=== PATIENT | male | born 1985 | race Caucasian/White ===

== ENCOUNTER 2020-07-05 11:17 | Emergency (ER) | payer BC ==
[~2020-07-05] VITALS: Ht 177.8 cm; Wt 129.6 kg
[2020-07-05 11:24] VITALS: BP 161/102
[2020-07-05] MEDS ORDERED: ALBU8HFA PO (11:48)
[2020-07-05] MEDS ORDERED: DEXA6TAB6 PO (11:48)
[2020-07-05] MEDS ORDERED: BENZ-16 PO (12:01)
== END 2020-07-05 12:18 | disposition home or self-care (01) ==
LOC: ER 11:18
DX: U07.1 COVID-19 (principal); Z79.899 Other long term (current) drug therapy
CPT/HCPCS: 36415; 71045; 87635; 99284

== ENCOUNTER 2020-07-08 11:53 | Inpatient (IN) | payer BC ==
[~2020-07-08] VITALS: Ht 177.8 cm; Wt 127.3 kg
[~2020-07-08 11:53] MED LIST: ALBU8HFA PO; BENZ-16 PO; DEXA6TAB6 PO
[2020-07-08] MEDS ORDERED: normal saline 1000ML IV soln IVB ONE (12:20)
[2020-07-08] MEDS ORDERED: methylPREDNISolone sod succ 125mg/2ml vial IV ONE (12:20)
[2020-07-08 13:16] LABS: ABG BASE EXCESS 0.6 mmol/L (-2.0-2.0); ABG HCO3 22.5 mmol/L (22.0-26.0); ABG OXYGEN SATURATION 80.9 % (94-97); ABG PCO2 (T) 30.5 mmHg (35.0-48.0); ABG PO2 (T) 44.3 mmHg (75.0-100.0); ALLEN'S TEST POSITIVE; FCOHb 0.9 % (0.0-3.9); FMetHb 0.2 % (0.0-1.5); PATIENT TEMPERATURE 37.7; TOTAL HEMOGLOBIN 16.5 G/dl (14.0-18.0)
[2020-07-08 13:17] LABS: BASOPHILS # (AUTO) 0.1 X10'3 (0-0.2); EOSINOPHILS % (AUTO) 0 % (0-6); HEMATOCRIT 47.7 % (42.0-52.0); HEMOGLOBIN 16.2 g/dl (14.0-17.9); LYMPHOCYTES # (AUTO) 0.5 X10'3 (1.1-4.8); LYMPHOCYTES % (AUTO) 4.1 % (21-51); MEAN CORPUSCULAR HEMOGLOBIN 29.4 PG (27.0-31.0); MEAN CORPUSCULAR HGB CONC 34.1 g/dL (33.0-36.5); MEAN CORPUSCULAR VOLUME 86.2 FL (78-98); MEAN PLATELET VOLUME 7.3 FL (7.4-10.4); MONOCYTES # (AUTO) 0.5 X10'3 (0-0.9); MONOCYTES % (AUTO) 4.3 % (2-12); NEUTROPHILS # (AUTO) 10.2 X10'3 (1.8-7.7); NEUTROPHILS % (AUTO) 90.6 % (42-75); PLATELET COUNT 237 X10'3 (140-440); RED BLOOD COUNT 5.53 X10'6 (4.70-6.10); RED CELL DISTRIBUTION WIDTH 13.1 % (11.5-14.5); WHITE BLOOD COUNT 11.3 X10'3 (4.5-11.0)
--- NOTE | 2020-07-08 13:24 | NUR ---
PT ON NON REBREATHER 15L SATS AT 96%
[2020-07-08 13:30] LABS: D-DIMER 0.66 MG/L FEU (0-0.50); PARTIAL THROMBOPLASTIN TIME 26 SECONDS (22-32)
[2020-07-08 13:44] LABS: ALANINE AMINOTRANSFERASE 115 U/L (12-78); ALBUMIN 3.4 G/DL (3.4-5.0); ALBUMIN/GLOBULIN RATIO 0.7 (1.1-1.5); ALKALINE PHOSPHATASE 59 IU/L (46-116); ANION GAP 11 (8-16); ASPARTATE AMINO TRANSFERASE 87 U/L (10-37); BILIRUBIN,TOTAL 0.9 MG/DL (0.1-1.0); BLOOD UREA NITROGEN 13 MG/DL (7-18); BUN/CREATININE RATIO 13.5 (5.4-32.0); CALCIUM 8.6 MG/DL (8.5-10.1); CHLORIDE 98 MMOL/L (99-107); CREATININE 0.96 MG/DL (0.60-1.10); GLUCOSE 128 MG/DL (70-104); POTASSIUM 3.8 MMOL/L (3.5-5.1); SODIUM 134 MMOL/L (135-145); TOTAL CARBON DIOXIDE 24.7 MMOL/L (24-32); TOTAL PROTEIN 8.3 G/DL (6.4-8.2); eGFR 89 ML/MIN
[2020-07-08] MEDS ORDERED: magnesium 2GM in 50ml NS 50 ML IV ONE (13:50)
[2020-07-08] MEDS ORDERED: azithromycin/NS 500mg/250ml 250 ML IV ONE (13:55)
--- NOTE | 2020-07-08 14:12 | NUR ---
IV compatibility checked via micromedex for Zithromax and magnesium.
[2020-07-08] MEDS ORDERED: ipratropium/albuterol 3ml nebule NEB ONE (14:25)
[2020-07-08] MEDS ORDERED: ALBUTEROL INHALER 1 PUFF/90 MCG INHALER IH ONE (15:15)
[2020-07-08] MEDS ORDERED: NO HOME MEDS (15:20)
[2020-07-08 15:27] LABS: C-REACTIVE PROTEIN 15.13 MG/DL (0.0-0.5)
[2020-07-08 17:10] LABS: LACTATE DEHYDROGENASE 444 U/L (85-227)
[2020-07-08] MEDS ORDERED: enoxaparin 100mg/ml syringe SUBCUT SCH (17:10)
[2020-07-08] MEDS ORDERED: ondansetron/PF 4mg/2ml inj IV PRN (17:10)
[2020-07-08] MEDS ORDERED: potassium Cl 20 mEq SR tablet PO PRN ×2 (17:10)
[2020-07-08] MEDS ORDERED: potassium CL 10mEq/100ml bag 100 ML IV PRN ×2 (17:10)
[2020-07-08] MEDS ORDERED: magnesium 2GM in 50ml NS 50 ML IV PRN (17:10)
[2020-07-08] MEDS ORDERED: magnesium 4gm in 100ml NS 100 ML IV PRN (17:10)
[2020-07-08] MEDS ORDERED: mag hydrox/Alum hydrox/simeth 30ml oral suspension PO PRN (17:10)
[2020-07-08] MEDS ORDERED: magnesium Cl slow-release 64mg tablet PO PRN (17:10)
[2020-07-08] MEDS ORDERED: acetaminophen 325mg tablet PO PRN (17:10)
[2020-07-08] MEDS ORDERED: REMDESIVIR 100MG inj. 200 MG in normal saline 100ml IV soln 100 ML IV ONE (17:20)
[2020-07-08] MEDS ORDERED: REMDESIVIR 100 MG IV ONE (18:18)
[2020-07-08] MEDS: methylPREDNISolone sod succ 125mg/2ml vial IV SCH (19:28)
[2020-07-08] MEDS: normal saline 1000ml 1,000 ML IV SCH (19:28)
[2020-07-08] MEDS: K and/or MAG REPLACEMENT MC SCH (19:59)
[2020-07-08] MEDS ORDERED: heparin, porcine 5000 units/ml vial SQ SCH (20:00)
[2020-07-08] MEDS: ALBUTEROL INHALER 1 PUFF/90 MCG INHALER IH PRN (22:31)
--- NOTE | 2020-07-08 23:10 | NUR ---
report received-- discussed hypoxia with primary rn. per rn, md carter has been notified and ordered personal inhaler for treatment. md aware of pt satting in low 90s, on a non rebreather. no additional orders. unable to give albuterol treatment due to covid status. md aware of pt's condition.
[2020-07-09 00:47] LABS: BASOPHILS % (AUTO) 0 % (0-1); EOSINOPHILS % (AUTO) 0 % (0-6); HEMOGLOBIN 14.9 g/dl (14.0-17.9); LYMPHOCYTES # (AUTO) 0.4 X10'3 (1.1-4.8); LYMPHOCYTES % (AUTO) 4.2 % (21-51); MEAN CORPUSCULAR HGB CONC 34.5 g/dL (33.0-36.5); MEAN CORPUSCULAR VOLUME 86.9 FL (78-98); MEAN PLATELET VOLUME 7.2 FL (7.4-10.4); MONOCYTES # (AUTO) 0.5 X10'3 (0-0.9); NEUTROPHILS # (AUTO) 8.4 X10'3 (1.8-7.7); NEUTROPHILS % (AUTO) 90.8 % (42-75); PLATELET COUNT 252 X10'3 (140-440); RED BLOOD COUNT 4.95 X10'6 (4.70-6.10); RED CELL DISTRIBUTION WIDTH 13.2 % (11.5-14.5); WHITE BLOOD COUNT 9.2 X10'3 (4.5-11.0)
--- NOTE | 2020-07-09 00:50 | NUR ---
I have received report from MARCIO Stinson (ED) and had the opportunity to ask questions.
[2020-07-09 01:04] LABS: ALBUMIN 2.8 G/DL (3.4-5.0); ANION GAP 10 (8-16); BLOOD UREA NITROGEN 14 MG/DL (7-18); BUN/CREATININE RATIO 16.3 (5.4-32.0); CALCIUM 8.4 MG/DL (8.5-10.1); CHLORIDE 103 MMOL/L (99-107); CREATININE 0.86 MG/DL (0.60-1.10); GLUCOSE 148 MG/DL (70-104); MAGNESIUM 2.4 MG/DL (1.5-2.4); POTASSIUM 3.7 MMOL/L (3.5-5.1); SODIUM 139 MMOL/L (135-145); TOTAL CARBON DIOXIDE 26.1 MMOL/L (24-32); eGFR > 90 ML/MIN
--- NOTE | 2020-07-09 01:35 | NUR ---
Pt arrived in the unit via gurney from ED. Pt is a/o x 4; pt belongings are with the pt. Oriented in the room. Place on tele monitor. MRSA swab and skin assessment done.
[2020-07-09 02:03] VITALS: BP 139/84
--- NOTE | 2020-07-09 06:04 | NUR ---
Problems reprioritized. Patient report given, questions answered & plan of care reviewed with MARCIO Rosario.
[2020-07-09 07:15] VITALS: BP 127/78
[2020-07-09] MEDS: K and/or MAG REPLACEMENT MC SCH ×2 (08:00→20:00)
[2020-07-09] MEDS: methylPREDNISolone sod succ 125mg/2ml vial IV SCH ×2 (08:16→20:20)
[2020-07-09] MEDS: enoxaparin 40mg/0.4ml syringe SUBCUT SCH (08:17)
--- NOTE | 2020-07-09 09:42 | NUR ---
Paged RT regarding putting patient on a tower with humidification for comfort.
[2020-07-09] MEDS: ALBUTEROL INHALER 1 PUFF/90 MCG INHALER IH PRN (10:18)
[2020-07-09 11:40] VITALS: BP 131/83
[2020-07-09 15:48] VITALS: BP 131/85
[2020-07-09] MEDS: REMDESIVIR 100MG inj. 100 MG in normal saline 100ml IV soln 100 ML IV SCH (16:31)
[2020-07-09] MEDS ORDERED: REMDESIVIR 100 MG IV ONE (16:36)
[2020-07-09 18:00] VITALS: BP 128/79
--- NOTE | 2020-07-09 18:16 | NUR ---
Problems reprioritized. Patient report given, questions answered & plan of care reviewed with MARCIO Jack. Patient stable at transfer of care.
--- NOTE | 2020-07-09 18:26 | NUR ---
Patient in room PCU 3008. I have received report from Marlene BUCKLEY and had the opportunity to ask questions and assume patient care.
--- NOTE | 2020-07-09 20:50 | NUR ---
Problems reprioritized. Patient report given, questions answered & plan of care reviewed with gael BUCKLEY from Ortho/Neuro.
--- NOTE | 2020-07-09 21:01 | NUR ---
Patient in room PCU 3008. I have received report from Guero BUCKLEY and had the opportunity to ask questions and assume patient care.
[2020-07-09 22:00] VITALS: BP 120/78
--- NOTE | 2020-07-09 22:09 | NUR ---
Reviewed Guero RN, charting and agree with it. Patient is A&Ox4 and in no apparent distress. Patient lying in bed comfortably and watching tv.
[2020-07-10] VITALS (12 sets, daily range): BP systolic 125–152; BP diastolic 64–87
--- NOTE | 2020-07-10 04:00 | NUR ---
Attempted to draw labs on patient 6 times and was unable to get any blood, Informed the charge nurse that I was unable to draw blood on him. Another nurse will try on day shift.
--- NOTE | 2020-07-10 06:22 | NUR ---
Problems reprioritized. Patient report given, questions answered & plan of care reviewed with Gillian BUCKLEY.
--- NOTE | 2020-07-10 06:30 | NUR ---
Patient in room ICU 2046. I have received report from JENNIFER BUCKLEY and had the opportunity to ask questions and assume patient care.
--- NOTE | 2020-07-10 06:48 | NUR ---
PT'S SATS KEEP DROPPING TO 88-87. ORDERED RP TX.
[2020-07-10] MEDS: ALBUTEROL INHALER 1 PUFF/90 MCG INHALER IH PRN ×2 (06:52→10:23)
[2020-07-10] MEDS: K and/or MAG REPLACEMENT MC SCH ×2 (08:00→20:00)
--- NOTE | 2020-07-10 08:26 | NUR ---
UNABLE TO HANG REMDESIVIR, PHARMACY FORGOT TO SEND IT. CALLED PHARMACY , THEY ARE GETTING IT READY.
[2020-07-10] MEDS ORDERED: REMDESIVIR 100 MG IV ONE (08:35)
[2020-07-10] MEDS: methylPREDNISolone sod succ 125mg/2ml vial IV SCH ×2 (08:39→19:21)
[2020-07-10] MEDS: enoxaparin 40mg/0.4ml syringe SUBCUT SCH (08:40)
[2020-07-10] MEDS: REMDESIVIR 100MG inj. 100 MG in normal saline 100ml IV soln 100 ML IV SCH (08:53)
--- NOTE | 2020-07-10 09:07 | NUR ---
PT HAD 6 ATTEMPTS LAST MIGHT TO DRAW BLOOD BY THE NURSE. I ATTEMPTED ONCE. CALLED LAB PER DR ASH.
[2020-07-10 09:49] LABS: BASOPHILS % (AUTO) 0.3 % (0-1); EOSINOPHILS % (AUTO) 0 % (0-6); HEMATOCRIT 43.9 % (42.0-52.0); HEMOGLOBIN 15.3 g/dl (14.0-17.9); LYMPHOCYTES # (AUTO) 0.8 X10'3 (1.1-4.8); LYMPHOCYTES % (AUTO) 7.1 % (21-51); MEAN CORPUSCULAR HEMOGLOBIN 30.1 PG (27.0-31.0); MEAN CORPUSCULAR HGB CONC 34.8 g/dL (33.0-36.5); MEAN CORPUSCULAR VOLUME 86.4 FL (78-98); MEAN PLATELET VOLUME 7.3 FL (7.4-10.4); MONOCYTES # (AUTO) 1.1 X10'3 (0-0.9); MONOCYTES % (AUTO) 10.6 % (2-12); NEUTROPHILS # (AUTO) 8.7 X10'3 (1.8-7.7); PLATELET COUNT 352 X10'3 (140-440); RED BLOOD COUNT 5.08 X10'6 (4.70-6.10); RED CELL DISTRIBUTION WIDTH 13.2 % (11.5-14.5); WHITE BLOOD COUNT 10.6 X10'3 (4.5-11.0)
[2020-07-10 09:56] LABS: D-DIMER 0.35 MG/L FEU (0-0.50)
[2020-07-10 09:58] LABS: HEMOGLOBIN A1C 5.8 % (4.5-6.2)
[2020-07-10 10:00] LABS: ALBUMIN 2.8 G/DL (3.4-5.0); ANION GAP 11 (8-16); BLOOD UREA NITROGEN 21 MG/DL (7-18); BUN/CREATININE RATIO 26.3 (5.4-32.0); C-REACTIVE PROTEIN 6.62 MG/DL (0.0-0.5); CALCIUM 8.9 MG/DL (8.5-10.1); CHLORIDE 103 MMOL/L (99-107); GLUCOSE 134 MG/DL (70-104); LACTATE DEHYDROGENASE 374 U/L (85-227); MAGNESIUM 2.5 MG/DL (1.5-2.4); POTASSIUM 3.8 MMOL/L (3.5-5.1); SODIUM 138 MMOL/L (135-145); eGFR > 90 ML/MIN
--- NOTE | 2020-07-10 10:30 | NUR ---
TRANSFERRED PT TO ICU
[2020-07-10 11:03] LABS: ALANINE AMINOTRANSFERASE 103 U/L (12-78); ALBUMIN/GLOBULIN RATIO 0.6 (1.1-1.5); ALKALINE PHOSPHATASE 46 IU/L (46-116); ASPARTATE AMINO TRANSFERASE 59 U/L (10-37); BILIRUBIN,DIRECT 0.2 MG/DL (0-0.3); BILIRUBIN,TOTAL 0.5 MG/DL (0.1-1.0); TOTAL PROTEIN 7.3 G/DL (6.4-8.2)
--- NOTE | 2020-07-10 12:19 | NUR ---
Malnutrition consult. Pt visualized from outside room, has no visible fat or muscle wasting. No malnutrition. Eating 25% average 4 meals, poor appetite likely r/t shortness of breath. Recommend supplement to meet needs in view of lower respiratory tract infection, hypoxemia, and covid-19 per MD progress notes. Recommend: 1. continue regular diet 2. ensure enlive TID 3. wt per rx Addendum: 07/10/20 at [address] Amended: Links added.
[2020-07-10] MEDS: normal saline 1000ml 1,000 ML IV SCH (17:02)
[2020-07-10] MEDS: lactose-reduced food (Ensure Enlive) - 237ml bottle PO SCH (18:00)
--- NOTE | 2020-07-10 18:25 | NUR ---
Patient in room ICU 2046. I have received report from Candido BUCKLEY and had the opportunity to ask questions and assume patient care.
[2020-07-10] MEDS ORDERED: dexamethasone 4mg/ml inj IV SCH (20:00)
[2020-07-11] VITALS (24 sets, daily range): BP systolic 113–149; BP diastolic 51–94
[2020-07-11] MEDS: ALBUTEROL INHALER 1 PUFF/90 MCG INHALER IH PRN ×2 (00:29→20:28)
--- NOTE | 2020-07-11 01:12 | NUR ---
Paged RT per O2 saturations staying between 85-89%. Pt has no c/o of significant SOB, provided PRN breathing tx, had pt clean nose, unable to improve saturations. Addendum: 07/11/20 at 0142 by Matthias Jett RN Tested with portable pulse oxygen readings accurate within a 1-2% error. Patient O2 staying around 88-90 at this time. Told patient to let me know when he feels symptomatic / SOB. Will continue to monitor.
--- NOTE | 2020-07-11 03:00 | NUR ---
delaying drawing labs, patient sleeping for first time this shift leading to increased oxygen saturations. Staying 92-94% will draw labs once patient wakes up, and will promote proper sleeping.
[2020-07-11 04:29] LABS: ALBUMIN 2.9 G/DL (3.4-5.0); ANION GAP 10 (8-16); BLOOD UREA NITROGEN 22 MG/DL (7-18); BUN/CREATININE RATIO 27.8 (5.4-32.0); C-REACTIVE PROTEIN 3.13 MG/DL (0.0-0.5); CALCIUM 9.1 MG/DL (8.5-10.1); CHLORIDE 104 MMOL/L (99-107); CREATININE 0.79 MG/DL (0.60-1.10); GLUCOSE 148 MG/DL (70-104); LACTATE DEHYDROGENASE 359 U/L (85-227); MAGNESIUM 2.5 MG/DL (1.5-2.4); POTASSIUM 4.2 MMOL/L (3.5-5.1); SODIUM 139 MMOL/L (135-145); TOTAL CARBON DIOXIDE 24.8 MMOL/L (24-32); eGFR > 90 ML/MIN
[2020-07-11 04:34] LABS: D-DIMER 0.31 MG/L FEU (0-0.50)
[2020-07-11 04:36] LABS: MEAN PLATELET VOLUME 7.3 FL (7.4-10.4); RED CELL DISTRIBUTION WIDTH 13.3 % (11.5-14.5)
[2020-07-11 04:38] LABS: BASOPHILS % (AUTO) 0 % (0-1); EOSINOPHILS % (AUTO) 0 % (0-6); HEMATOCRIT 45.5 % (42.0-52.0); HEMOGLOBIN 15.7 g/dl (14.0-17.9); LYMPHOCYTES # (AUTO) 0.7 X10'3 (1.1-4.8); LYMPHOCYTES % (AUTO) 6.6 % (21-51); MEAN CORPUSCULAR HGB CONC 34.4 g/dL (33.0-36.5); MEAN CORPUSCULAR VOLUME 87.1 FL (78-98); MONOCYTES # (AUTO) 1.2 X10'3 (0-0.9); MONOCYTES % (AUTO) 10.4 % (2-12); NEUTROPHILS # (AUTO) 9.2 X10'3 (1.8-7.7); PLATELET COUNT 400 X10'3 (140-440); RED BLOOD COUNT 5.23 X10'6 (4.70-6.10); WHITE BLOOD COUNT 11.1 X10'3 (4.5-11.0)
--- NOTE | 2020-07-11 06:05 | NUR ---
Problems reprioritized. Patient report given, questions answered & plan of care reviewed with Candido BUCKLEY.
--- NOTE | 2020-07-11 06:07 | NUR ---
Patient in room ICU 2046. I have received report from MARCIO Lan and had the opportunity to ask questions and assume patient care.
[2020-07-11] MEDS: K and/or MAG REPLACEMENT MC SCH ×2 (07:01→20:00)
[2020-07-11] MEDS: lactose-reduced food (Ensure Enlive) - 237ml bottle PO SCH ×3 (08:00→18:00)
[2020-07-11] MEDS ORDERED: REMDESIVIR 100 MG IV ONE (08:35)
[2020-07-11] MEDS: REMDESIVIR 100MG inj. 100 MG in normal saline 100ml IV soln 100 ML IV SCH (08:54)
[2020-07-11] MEDS: enoxaparin 40mg/0.4ml syringe SUBCUT SCH (08:55)
[2020-07-11] MEDS: methylPREDNISolone sod succ 125mg/2ml vial IV SCH ×2 (08:55→20:20)
--- NOTE | 2020-07-11 18:05 | NUR ---
Problems reprioritized. Patient report given, questions answered & plan of care reviewed with MARCIO Jack.
--- NOTE | 2020-07-11 18:10 | NUR ---
Patient in room ICU 2046. I have received report from Ad BUCKLEY and had the opportunity to ask questions and assume patient care.
--- NOTE | 2020-07-11 19:09 | NUR ---
Ensure Supplement ordered for the wrong date and time. Will give 07/11 evening supplement once it arrives.
--- NOTE | 2020-07-11 20:29 | NUR ---
albuterol was not scanning. administered d/t pt c/o SOB. Sats were low 80s. after administration, sats are back to low 90s. pt now has no complaint of SOB and no cough. will continue to monitor.
--- NOTE | 2020-07-11 22:23 | NUR ---
pt got up to commode and sats dropped to 80-82% with pt c/o SOB. increased O2 to 65%. sats up to 93%. decreased to 60% and now remaining at 88-90%. will continue titrate back down to 50% at desirable levels. Pt is comfortable and in no apparent distress. will continue to monitor. Addendum: 07/12/20 at 0206 by Guero Colon RN correction: increased O2 to 65L decreased to 60L O2 titrate back down to 50L O2
[2020-07-12] VITALS (25 sets, daily range): BP systolic 106–145; BP diastolic 64–92
[2020-07-12] MEDS: ALBUTEROL INHALER 1 PUFF/90 MCG INHALER IH PRN (04:01)
--- NOTE | 2020-07-12 04:03 | NUR ---
scanner not working for albuterol. pt sat to 79% with SOB per pt. sat back up to 90% on 60L O2. pt WOB decreased and is more comfortable. no apparent distress at this time. will continue to monitor.
[2020-07-12 04:53] LABS: BASOPHILS % (AUTO) 0.2 % (0-1); EOSINOPHILS % (AUTO) 0 % (0-6); HEMOGLOBIN 15.9 g/dl (14.0-17.9); LYMPHOCYTES # (AUTO) 0.7 X10'3 (1.1-4.8); LYMPHOCYTES % (AUTO) 6.5 % (21-51); MEAN CORPUSCULAR HEMOGLOBIN 29.2 PG (27.0-31.0); MEAN CORPUSCULAR HGB CONC 33.9 g/dL (33.0-36.5); MEAN CORPUSCULAR VOLUME 86.2 FL (78-98); MEAN PLATELET VOLUME 7.4 FL (7.4-10.4); MONOCYTES % (AUTO) 9.3 % (2-12); NEUTROPHILS # (AUTO) 9.4 X10'3 (1.8-7.7); PLATELET COUNT 409 X10'3 (140-440); RED BLOOD COUNT 5.45 X10'6 (4.70-6.10); WHITE BLOOD COUNT 11.2 X10'3 (4.5-11.0)
[2020-07-12 05:00] LABS: D-DIMER 0.91 MG/L FEU (0-0.50)
[2020-07-12 05:12] LABS: ALBUMIN 2.9 G/DL (3.4-5.0); ANION GAP 11 (8-16); BLOOD UREA NITROGEN 21 MG/DL (7-18); C-REACTIVE PROTEIN 1.37 MG/DL (0.0-0.5); CHLORIDE 104 MMOL/L (99-107); CREATININE 0.84 MG/DL (0.60-1.10); GLUCOSE 123 MG/DL (70-104); LACTATE DEHYDROGENASE 325 U/L (85-227); MAGNESIUM 2.4 MG/DL (1.5-2.4); POTASSIUM 4.3 MMOL/L (3.5-5.1); SODIUM 140 MMOL/L (135-145); TOTAL CARBON DIOXIDE 24.6 MMOL/L (24-32); eGFR > 90 ML/MIN
[2020-07-12] MEDS: normal saline 1000ml 1,000 ML IV SCH (05:13)
--- NOTE | 2020-07-12 06:30 | NUR ---
Received report from Guero BUCKLEY, [facility] care.
--- NOTE | 2020-07-12 06:39 | NUR ---
Problems reprioritized. Patient report given, questions answered & plan of care reviewed with Nkechi BUCKLEY.
[2020-07-12] MEDS: K and/or MAG REPLACEMENT MC SCH ×2 (07:07→20:00)
[2020-07-12] MEDS: methylPREDNISolone sod succ 125mg/2ml vial IV SCH ×2 (08:31→20:16)
[2020-07-12] MEDS: REMDESIVIR 100MG inj. 100 MG in normal saline 100ml IV soln 100 ML IV SCH (08:31)
[2020-07-12] MEDS: enoxaparin 40mg/0.4ml syringe SUBCUT SCH (08:31)
[2020-07-12] MEDS: lactose-reduced food (Ensure Enlive) - 237ml bottle PO SCH ×3 (08:34→18:53)
[2020-07-12] MEDS ORDERED: REMDESIVIR 100 MG IV ONE (08:35)
--- NOTE | 2020-07-12 09:24 | NUR ---
Patient tearful and c/o nose dry r/t pain of oxygen force. Noted IV saline bag was dry, RT notified and delivered. O2 saturation dropped to 83% when patient removed O2 tubing from discomfort. Educated patient to leave on and I'll get the bag devante. This nurse hung bag and also provided patient with lubricating jelly to moisturize nose. Current O2 is 90% on 65L. Breakfast at bedside and tolerating well.
--- NOTE | 2020-07-12 09:49 | NUR ---
Made Dr. Hoyos aware of increase on High Flow to 65 L from 60 L, current O2 saturation level is 87-91% with frequent fluctuation. Will cont. to monitor. Dr. Hoyos states to maintain goal of 88-90%, we don't want to do too much and risk intubating him. Also noted since add the new bag of High flow fluid bag patient states his nose pain has improved 100%, "it's 100% better."
--- NOTE | 2020-07-12 13:30 | NUR ---
Decreased high flow oxygen from 65 L to 55 L, patient is maintaining 88-92%. Will cont. to monitor and attempt to ween the Liters down as patient tolerates.
--- NOTE | 2020-07-12 14:45 | NUR ---
Initial: Pt admit DX COVID-19 PNA and hypoxia on 60L O2 per MD note. PO 75-100% avg regular diet PO pending w/ ensure enlive TIDWM though likely meeting needs pending scaled wt this admit. LBM 07/12. Will continue to monitor. Recommend: 1. continue regular diet 2. ensure enlive TID 3. bowel care per rx 4. wt per rx Addendum: 07/12/20 at [address] Amended: Links added.
--- NOTE | 2020-07-12 16:50 | NUR ---
Was able to turn Liters down quite a bit after consulting with RT. Advised to decrease to 40 L and 80% FIO2. Will cont. to monitor.
--- NOTE | 2020-07-12 18:10 | NUR ---
Gave report to Guero BUCKLEY, transferred care over.
--- NOTE | 2020-07-12 18:13 | NUR ---
Received orders for Melatonin 3 mg at HS for sleep aid.
--- NOTE | 2020-07-12 18:20 | NUR ---
Patient in room ICU 2046. I have received report from Nkechi BUCKLEY and had the opportunity to ask questions and assume patient care.
--- NOTE | 2020-07-12 19:09 | NUR ---
patient was increased to 50L of O2 from 40L and 80%FiO2 from 70%FiO2. Pt is currently sating at 87%-90%. will continue to monitor
--- NOTE | 2020-07-12 19:56 | NUR ---
pt sating at 93%... decreased patient's O2 back down to 40L and FiO2 back down to 70%. Pt currently sating at 90%.
[2020-07-12] MEDS: Melatonin 3mg tablet PO SCH (20:16)
[2020-07-13] VITALS (24 sets, daily range): BP systolic 103–130; BP diastolic 57–88
[2020-07-13 04:41] LABS: BASOPHILS % (AUTO) 0.2 % (0-1); EOSINOPHILS % (AUTO) 0 % (0-6); HEMATOCRIT 48.8 % (42.0-52.0); HEMOGLOBIN 16.7 g/dl (14.0-17.9); LYMPHOCYTES # (AUTO) 0.9 X10'3 (1.1-4.8); LYMPHOCYTES % (AUTO) 6.6 % (21-51); MEAN CORPUSCULAR HEMOGLOBIN 29.5 PG (27.0-31.0); MEAN CORPUSCULAR HGB CONC 34.2 g/dL (33.0-36.5); MEAN CORPUSCULAR VOLUME 86.1 FL (78-98); MEAN PLATELET VOLUME 7.3 FL (7.4-10.4); MONOCYTES % (AUTO) 7.5 % (2-12); NEUTROPHILS # (AUTO) 11.1 X10'3 (1.8-7.7); NEUTROPHILS % (AUTO) 85.7 % (42-75); PLATELET COUNT 418 X10'3 (140-440); RED BLOOD COUNT 5.67 X10'6 (4.70-6.10); RED CELL DISTRIBUTION WIDTH 13.1 % (11.5-14.5); WHITE BLOOD COUNT 12.9 X10'3 (4.5-11.0)
[2020-07-13 04:47] LABS: D-DIMER 0.34 MG/L FEU (0-0.50)
[2020-07-13 04:52] LABS: ALBUMIN 2.9 G/DL (3.4-5.0); ANION GAP 11 (8-16); BLOOD UREA NITROGEN 19 MG/DL (7-18); BUN/CREATININE RATIO 24.1 (5.4-32.0); C-REACTIVE PROTEIN 0.53 MG/DL (0.0-0.5); CALCIUM 8.5 MG/DL (8.5-10.1); CHLORIDE 101 MMOL/L (99-107); CREATININE 0.79 MG/DL (0.60-1.10); GLUCOSE 128 MG/DL (70-104); LACTATE DEHYDROGENASE 285 U/L (85-227); MAGNESIUM 2.2 MG/DL (1.5-2.4); POTASSIUM 4.4 MMOL/L (3.5-5.1); SODIUM 136 MMOL/L (135-145); TOTAL CARBON DIOXIDE 23.6 MMOL/L (24-32); eGFR > 90 ML/MIN
--- NOTE | 2020-07-13 06:10 | NUR ---
Received report from BILL BUCKLEY, [facility] care.
--- NOTE | 2020-07-13 06:10 | NUR ---
Problems reprioritized. Patient report given, questions answered & plan of care reviewed with Nkechi Cleaning.
[2020-07-13] MEDS: K and/or MAG REPLACEMENT MC SCH ×2 (06:29→19:59)
[2020-07-13] MEDS: methylPREDNISolone sod succ 125mg/2ml vial IV SCH (08:03)
[2020-07-13] MEDS: enoxaparin 40mg/0.4ml syringe SUBCUT SCH (08:03)
[2020-07-13] MEDS: lactose-reduced food (Ensure Enlive) - 237ml bottle PO SCH ×3 (08:03→18:00)
--- NOTE | 2020-07-13 08:30 | NUR ---
Encouraged patient to sit on side of bed for breakfast today since yesterday he sat in bed for all meals. Upon sitting on side of bed he began to cough continually x 5-7 minutes straight. Turned up FIO2 to 100% and L up to 70 from 40. In addition d/t his saturation levels not rising to goal I added 15 L NRB to assist in oxygenation. Was successful. Patient stopped coughing and removed the NRB after over 10 minutes of coughing. Currently sitting at bedside on 90% Fio2 and 60 L at 89%. Will cont. to monitor.
--- NOTE | 2020-07-13 10:41 | NUR ---
5F DUAL LUMEN MIDLINE PLACED TO RIGHT BASILIC VEIN X'S 1 ATTEMPT WITH SUCCESS USING ULTRASOUND GUIDANCE. TIP ENDS MIDAXILLARY, DRAWS BLOOD AND FLUSHES WITHOUT DIFFICULTY. Bozena GARCIA PICC RN
[2020-07-13] MEDS: ALBUTEROL INHALER 1 PUFF/90 MCG INHALER IH PRN ×2 (12:24→16:00)
[2020-07-13] MEDS: benzonatate 100mg capsule PO PRN ×2 (12:28→20:41)
[2020-07-13] MEDS: normal saline 1000ml 1,000 ML IV SCH (16:00)
--- NOTE | 2020-07-13 18:17 | NUR ---
Gave report to Guero BUCKLEY, transferred care.
--- NOTE | 2020-07-13 18:23 | NUR ---
Patient in room ICU 2046. I have received report from Nkechi BUCKLEY and had the opportunity to ask questions and assume patient care.
--- NOTE | 2020-07-13 19:12 | NUR ---
pt is awake and got up to the commode and had coughing spells. pt dropped to 80% Saturations. increased O2 to 70L and FiO2 to 100% with NRB @ 10L. pt is satting at 87-89%. Pt had the NRB on for aprox. 5 minutes. once pt begins to have higher sats and is tolerating well, will begin to decrease O2 and FiO2. pt is stable and is no longer SOB. pt appears to be comfortable for the moment. Will continue to monitor.
--- NOTE | 2020-07-13 19:44 | NUR ---
pt got back into bed. decreased O2 from 70L to 60L and FiO2 from 100% to 80%. pt is now sating @ 89-92%. will continue to decrease levels as pt tolerates.
[2020-07-13] MEDS: methylPREDNISolone sod succ/PF 40mg inj. IV SCH (20:41)
[2020-07-13] MEDS: Melatonin 3mg tablet PO SCH (20:41)
--- NOTE | 2020-07-13 22:04 | NUR ---
pt saturations 93-95%. decreased O2 to 45L and Fi to 60% from 55L and 70% Fi. pt is tolerating well and shows no sign of distress. O2 sat are currently 91-93%.
[2020-07-14] VITALS (24 sets, daily range): BP systolic 97–135; BP diastolic 54–75
[2020-07-14 04:00] LABS: BASOPHILS # (AUTO) 0.1 X10'3 (0-0.2); BASOPHILS % (AUTO) 0.9 % (0-1); EOSINOPHILS % (AUTO) 0 % (0-6); HEMOGLOBIN 15.3 g/dl (14.0-17.9); LYMPHOCYTES # (AUTO) 0.7 X10'3 (1.1-4.8); LYMPHOCYTES % (AUTO) 6.5 % (21-51); MEAN CORPUSCULAR HEMOGLOBIN 29.6 PG (27.0-31.0); MEAN CORPUSCULAR HGB CONC 34.1 g/dL (33.0-36.5); MEAN CORPUSCULAR VOLUME 86.9 FL (78-98); MEAN PLATELET VOLUME 7.6 FL (7.4-10.4); MONOCYTES # (AUTO) 0.8 X10'3 (0-0.9); NEUTROPHILS # (AUTO) 9.4 X10'3 (1.8-7.7); NEUTROPHILS % (AUTO) 85.6 % (42-75); PLATELET COUNT 195 X10'3 (140-440); RED BLOOD COUNT 5.18 X10'6 (4.70-6.10); RED CELL DISTRIBUTION WIDTH 12.9 % (11.5-14.5); WHITE BLOOD COUNT 10.9 X10'3 (4.5-11.0)
[2020-07-14 04:09] LABS: D-DIMER 0.53 MG/L FEU (0-0.50)
[2020-07-14 04:13] LABS: ALBUMIN 2.5 G/DL (3.4-5.0); ANION GAP 9 (8-16); BLOOD UREA NITROGEN 21 MG/DL (7-18); BUN/CREATININE RATIO 23.6 (5.4-32.0); C-REACTIVE PROTEIN 0.35 MG/DL (0.0-0.5); CALCIUM 7.9 MG/DL (8.5-10.1); CHLORIDE 102 MMOL/L (99-107); CREATININE 0.89 MG/DL (0.60-1.10); GLUCOSE 125 MG/DL (70-104); LACTATE DEHYDROGENASE 277 U/L (85-227); MAGNESIUM 2.1 MG/DL (1.5-2.4); POTASSIUM 4.4 MMOL/L (3.5-5.1); SODIUM 137 MMOL/L (135-145); TOTAL CARBON DIOXIDE 26.5 MMOL/L (24-32); eGFR > 90 ML/MIN
--- NOTE | 2020-07-14 06:12 | NUR ---
Received report from Guero BUCKLEY, [facility] care.
--- NOTE | 2020-07-14 06:13 | NUR ---
Problems reprioritized. Patient report given, questions answered & plan of care reviewed with Nkechi BUCKLEY.
--- NOTE | 2020-07-14 06:35 | NUR ---
Noted patient had been tolerating well 60% FIO2 and 40 L without s/sx of distress per noc RN. Turned down to 55% FIO2 and 35 L and will monitor to see how he does.
[2020-07-14] MEDS: K and/or MAG REPLACEMENT MC SCH ×2 (06:39→20:00)
--- NOTE | 2020-07-14 07:03 | NUR ---
Pharmacy call and informed since the patient's PLT's dropped from 418 to 195 L today (50% drop) then we hold the Lovenox. Will hold Lovenox and make MD aware of this.
[2020-07-14] MEDS: enoxaparin 40mg/0.4ml syringe SUBCUT SCH (07:14)
[2020-07-14] MEDS: lactose-reduced food (Ensure Enlive) - 237ml bottle PO SCH ×3 (08:16→18:00)
[2020-07-14] MEDS: methylPREDNISolone sod succ/PF 40mg inj. IV SCH ×2 (08:30→20:21)
[2020-07-14] MEDS: benzonatate 100mg capsule PO PRN ×2 (08:35→20:20)
--- NOTE | 2020-07-14 10:34 | NUR ---
Patient c/o chest congestion, see orders.
[2020-07-14] MEDS: guaiFENesin/DM 10ml UD oral syrup PO PRN ×2 (13:35→20:20)
--- NOTE | 2020-07-14 18:17 | NUR ---
Gave report to Guero BUCKLEY, assumed care.
--- NOTE | 2020-07-14 18:20 | NUR ---
Patient in room ICU 2046. I have received report from Nkechi BUCKLEY and had the opportunity to ask questions and assume patient care.
--- NOTE | 2020-07-14 19:00 | NUR ---
Pt has been tolerating O2 at 30L and FiO2 at 55% per report from day nurse. saturations have been 89-93%. will decrease FiO2 to 50% and continue to observe patient tolerating the change in oxygen.
[2020-07-14] MEDS: Melatonin 3mg tablet PO SCH (20:20)
--- NOTE | 2020-07-14 22:46 | NUR ---
pt sat up in the bed (high fowlers) and desat to 81% increased O2 to 40L and Fi to 60% with sats at 87-90%. will reattempt to decrease O2 and Fi when pt shows no s/s of SOB and with desirable O2 sat.
--- NOTE | 2020-07-14 23:39 | NUR ---
pt saturations was at 94%. decreased O2 to 35L and Fi to 50% and is sating at 87-90%. no s/s of distress. will continue to decrease oxygen as tolerated.
[2020-07-15] VITALS (17 sets, daily range): BP systolic 111–149; BP diastolic 58–90
[2020-07-15 03:43] LABS: BASOPHILS # (AUTO) 0.1 X10'3 (0-0.2); BASOPHILS % (AUTO) 0.5 % (0-1); EOSINOPHILS % (AUTO) 0.1 % (0-6); HEMOGLOBIN 14.6 g/dl (14.0-17.9); LYMPHOCYTES # (AUTO) 0.7 X10'3 (1.1-4.8); LYMPHOCYTES % (AUTO) 6.2 % (21-51); MEAN CORPUSCULAR HEMOGLOBIN 29.5 PG (27.0-31.0); MEAN CORPUSCULAR HGB CONC 33.8 g/dL (33.0-36.5); MEAN PLATELET VOLUME 7.1 FL (7.4-10.4); MONOCYTES # (AUTO) 0.8 X10'3 (0-0.9); MONOCYTES % (AUTO) 7.2 % (2-12); NEUTROPHILS # (AUTO) 9.7 X10'3 (1.8-7.7); PLATELET COUNT 295 X10'3 (140-440); RED BLOOD COUNT 4.94 X10'6 (4.70-6.10); RED CELL DISTRIBUTION WIDTH 12.8 % (11.5-14.5); WHITE BLOOD COUNT 11.3 X10'3 (4.5-11.0)
[2020-07-15 03:55] LABS: D-DIMER 1.56 MG/L FEU (0-0.50)
[2020-07-15 03:58] LABS: ALBUMIN 2.5 G/DL (3.4-5.0); ANION GAP 6 (8-16); BLOOD UREA NITROGEN 18 MG/DL (7-18); BUN/CREATININE RATIO 24.3 (5.4-32.0); C-REACTIVE PROTEIN 0.25 MG/DL (0.0-0.5); CHLORIDE 104 MMOL/L (99-107); CREATININE 0.74 MG/DL (0.60-1.10); GLUCOSE 148 MG/DL (70-104); LACTATE DEHYDROGENASE 233 U/L (85-227); MAGNESIUM 2.1 MG/DL (1.5-2.4); POTASSIUM 4.3 MMOL/L (3.5-5.1); SODIUM 136 MMOL/L (135-145); TOTAL CARBON DIOXIDE 25.6 MMOL/L (24-32); eGFR > 90 ML/MIN
--- NOTE | 2020-07-15 04:23 | NUR ---
pt sat were 93-95% on O2 at 30L and 50% Fi. decreased Fi to 40% and O2 remained at 30L. saturations now at 87-90%. pt shows no s/s of distress. will continue to decrease oxygen levels as tolerated.
--- NOTE | 2020-07-15 06:06 | NUR ---
Problems reprioritized. Patient report given, questions answered & plan of care reviewed with Tete BUCKLEY.
--- NOTE | 2020-07-15 06:28 | NUR ---
Patient in room ICU 2046. I have received report from Guero BUCKLEY and had the opportunity to ask questions and assume patient care.
[2020-07-15] MEDS: K and/or MAG REPLACEMENT MC SCH ×2 (08:00→20:00)
[2020-07-15] MEDS: benzonatate 100mg capsule PO PRN (08:16)
[2020-07-15] MEDS: methylPREDNISolone sod succ/PF 40mg inj. IV SCH (08:17)
[2020-07-15] MEDS: enoxaparin 40mg/0.4ml syringe SUBCUT SCH ×2 (08:17→20:41)
[2020-07-15] MEDS: lactose-reduced food (Ensure Enlive) - 237ml bottle PO SCH ×3 (08:18→18:31)
--- NOTE | 2020-07-15 18:30 | NUR ---
Problems reprioritized. Patient report given, questions answered & plan of care reviewed with Shani BUCKLEY.
--- NOTE | 2020-07-15 18:35 | NUR ---
Patient in room PCU 3008. I have received report from MARCIO Epstein and had the opportunity to ask questions and assume patient care.
[2020-07-15] MEDS: Melatonin 3mg tablet PO SCH (20:40)
--- NOTE | 2020-07-15 22:06 | NUR ---
, Lauren, updated on plan of care.
[2020-07-16 03:00] VITALS: BP 126/72
[2020-07-16 04:47] LABS: BASOPHILS % (AUTO) 0.1 % (0-1); EOSINOPHILS # (AUTO) 0.1 X10'3 (0-0.9); EOSINOPHILS % (AUTO) 0.6 % (0-6); HEMATOCRIT 46.5 % (42.0-52.0); HEMOGLOBIN 15.8 g/dl (14.0-17.9); LYMPHOCYTES # (AUTO) 1.6 X10'3 (1.1-4.8); LYMPHOCYTES % (AUTO) 13.9 % (21-51); MEAN CORPUSCULAR HEMOGLOBIN 29.6 PG (27.0-31.0); MEAN CORPUSCULAR HGB CONC 33.9 g/dL (33.0-36.5); MEAN CORPUSCULAR VOLUME 87.3 FL (78-98); MEAN PLATELET VOLUME 7.7 FL (7.4-10.4); MONOCYTES # (AUTO) 1.2 X10'3 (0-0.9); MONOCYTES % (AUTO) 10.3 % (2-12); NEUTROPHILS # (AUTO) 8.5 X10'3 (1.8-7.7); NEUTROPHILS % (AUTO) 75.1 % (42-75); PLATELET COUNT 312 X10'3 (140-440); RED BLOOD COUNT 5.33 X10'6 (4.70-6.10); WHITE BLOOD COUNT 11.3 X10'3 (4.5-11.0)
[2020-07-16 05:02] LABS: ALANINE AMINOTRANSFERASE 141 U/L (12-78); ALBUMIN 2.6 G/DL (3.4-5.0); ALBUMIN/GLOBULIN RATIO 0.7 (1.1-1.5); ALKALINE PHOSPHATASE 90 IU/L (46-116); ANION GAP 9 (8-16); ASPARTATE AMINO TRANSFERASE 35 U/L (10-37); BILIRUBIN,TOTAL 0.4 MG/DL (0.1-1.0); BLOOD UREA NITROGEN 19 MG/DL (7-18); BUN/CREATININE RATIO 22.9 (5.4-32.0); C-REACTIVE PROTEIN 0.15 MG/DL (0.0-0.5); CALCIUM 8.4 MG/DL (8.5-10.1); CHLORIDE 107 MMOL/L (99-107); CREATININE 0.83 MG/DL (0.60-1.10); GLUCOSE 107 MG/DL (70-104); POTASSIUM 3.5 MMOL/L (3.5-5.1); SODIUM 142 MMOL/L (135-145); TOTAL CARBON DIOXIDE 26.4 MMOL/L (24-32); TOTAL PROTEIN 6.2 G/DL (6.4-8.2); eGFR > 90 ML/MIN
--- NOTE | 2020-07-16 06:14 | NUR ---
Patient in room PCU 3008. I have received report from Shani BUCKLEY and had the opportunity to ask questions and assume patient care.
--- NOTE | 2020-07-16 06:15 | NUR ---
Problems reprioritized. Patient report given, questions answered & plan of care reviewed with MARCIO Epstein.
[2020-07-16 07:00] VITALS: BP 118/85
[2020-07-16] MEDS: predniSONE 20 mg tablet PO SCH (07:58)
[2020-07-16] MEDS: benzonatate 100mg capsule PO PRN (08:00)
[2020-07-16] MEDS: K and/or MAG REPLACEMENT MC SCH ×2 (08:00→19:44)
[2020-07-16] MEDS: enoxaparin 40mg/0.4ml syringe SUBCUT SCH ×2 (08:00→19:21)
[2020-07-16] MEDS: lactose-reduced food (Ensure Enlive) - 237ml bottle PO SCH ×3 (08:01→18:17)
[2020-07-16 11:00] VITALS: BP 124/78
[2020-07-16] MEDS ORDERED: zolpidem 5mg tablet PO PRN (15:25)
[2020-07-16 17:00] VITALS: BP 129/87
[2020-07-16] MEDS: normal saline 1000ml 1,000 ML IV SCH (17:10)
[2020-07-16 18:00] VITALS: BP 121/63
--- NOTE | 2020-07-16 18:19 | NUR ---
Problems reprioritized. Patient report given, questions answered & plan of care reviewed with Alondra BUCKLEY.
[2020-07-16] MEDS: Melatonin 3mg tablet PO SCH (20:41)
[2020-07-16 21:56] VITALS: BP 100/54
[2020-07-17 02:00] VITALS: BP 109/70
[2020-07-17 04:09] LABS: D-DIMER 0.86 MG/L FEU (0-0.50)
[2020-07-17 06:00] VITALS: BP 119/76
--- NOTE | 2020-07-17 06:07 | NUR ---
Patient in room PCU 3008. I have received report from MARCIO Ramon and had the opportunity to ask questions and assume patient care.
--- NOTE | 2020-07-17 06:15 | NUR ---
Problems reprioritized. Patient report given, questions answered & plan of care reviewed with MARCIO Zelaya.
[2020-07-17] MEDS: K and/or MAG REPLACEMENT MC SCH (08:00)
[2020-07-17] MEDS: enoxaparin 40mg/0.4ml syringe SUBCUT SCH (08:20)
[2020-07-17] MEDS: lactose-reduced food (Ensure Enlive) - 237ml bottle PO SCH ×2 (08:21→13:00)
[2020-07-17] MEDS: predniSONE 20 mg tablet PO SCH (08:21)
--- NOTE | 2020-07-17 08:47 | NUR ---
O2 Sat at rest on room air:85% If below 89%: Recovery O2 Sat at rest on ___LPM:___%: 89 % via 4L NC(mask/nasal cannula, etc..) No further documentation is necessary. If O2 Sat did not drop below 89% on room air,ambulate patient on room air. O2 Sat while ambulating on room air:___% Recovery O2 Sat while ambulating on ___LPM:___% No further documentation is necessary. If patient does not drop below 89% while ambulating, he/she does not qualify for home O2.
[2020-07-17 11:00] VITALS: BP 127/71
--- NOTE | 2020-07-17 11:30 | NUR ---
Reassessment: Great appetite, PO 75-100% avg regular diet. Intermittently drinks 100% of ensure enlive. Last BM 07/16. Will continue to monitor. Recommend: 1. continue regular diet 2. ensure enlive TID 3. bowel care per rx 4. wt per rx Addendum: 07/17/20 at [address] Amended: Links added.
--- NOTE | 2020-07-17 14:21 | NUR ---
PAGER ID: [phone] MESSAGE: [phone]: Hossein Johnson: Pt saturating 91% on 2-2.5L NC. Wanting to go to [place] if able to discharge today -Nathalie [phone]
[2020-07-17] MEDS ORDERED: PRED10TA23 PO (15:01)
[2020-07-17] MEDS ORDERED: ALBU8.5H8 IH (15:01)
--- NOTE | 2020-07-17 17:20 | NUR ---
Pt stable for discharge per MD. Provided discharge instructions and education. Answered any questions pt may have. PIV removed, cannula intact. Tele monitor removed. All medications verified at [facility] on [address]. Belongings sent with patient. Pt transported wheelchair to front lobby where picked pt up. Pt sent home with home O2.
[2020-07-18] MEDS ORDERED: enoxaparin 40mg/0.4ml syringe SUBCUT SCH (08:00)
[2020-07-18] MEDS ORDERED: prednisone 10mg tablet PO SCH (08:00)
== END 2020-07-17 17:18 | disposition home or self-care (01) | DRG 177 ==
LOC: ER 11:54 → ED HOLD 17:06 → PCU 3S 07-09 01:26 → ICU 2S 07-10 10:13 → PCU 3S 07-15 17:26
PROVIDERS: ADMIT Internal Medicine; ATTEND Internal Medicine Critical Care Medicine
PROC: XW033E5 Introduction of Remdesivir Anti-infective into Peripheral Vein, Percutaneous Approach, New Technology Group 5 (ICD-10-PCS; principal; 2020-07-09)
PROC: XW033E5 Introduction of Remdesivir Anti-infective into Peripheral Vein, Percutaneous Approach, New Technology Group 5 (ICD-10-PCS; 2020-07-10)
PROC: XW033E5 Introduction of Remdesivir Anti-infective into Peripheral Vein, Percutaneous Approach, New Technology Group 5 (ICD-10-PCS; 2020-07-11)
PROC: XW033E5 Introduction of Remdesivir Anti-infective into Peripheral Vein, Percutaneous Approach, New Technology Group 5 (ICD-10-PCS; 2020-07-12)
DX: U07.1 COVID-19 (principal); J12.89 Other viral pneumonia; J96.01 Acute respiratory failure with hypoxia; Z68.41 Body mass index [BMI] 40.0-44.9, adult; E66.01 Morbid (severe) obesity due to excess calories; Z79.899 Other long term (current) drug therapy; Z88.8 Allergy status to other drugs, medicaments and biological substances
CPT/HCPCS: 36415; 36600; 71045; 76937; 80048; 80053; 80076; 82803; 83036; 83605; 83615; 83735; 83880; 84145; 84484; 85018; 85025; 85379; 85610; 85730; 86140; 87040; 87081; 93005; 94640; 94760; 96365; 96375; 99285; G0378; J0456; J1650; J2920; J2930; J3475; J7030; J7512